=== PATIENT | male | born 1950 | race Caucasian/White ===

== ENCOUNTER → 2016-12-06 | Outpatient (CLI) | payer MEDICARE, OTHER ==
[~2016-12-06] MED LIST: ASPIRIN LO-DOSE81 MG PO; ATIVAN 1 MG1 MG PO; GARLIC1000 MG PO; KRILL OIL 3001 EACH PO; LIPITOR40 MG PO; MULTI VITAMIN1 EACH PO; NORVASC2.5 MG PO; OMEPRAZOLE40 MG PO; SUDAFED 12 HOU120 MG PO; TOPROL XL25 MG PO; VITAMIN B-1250 MG PO; VITAMIN B-12500 MCG PO; VITAMIN B-6100 MG PO; VITAMIN D35000 UNI1 PO; ZESTRIL30 MG PO
== END | disposition disaster alternative care site (69) ==
LOC: GRAD 14:47
DX: R51 Headache (principal)